=== PATIENT | female | born 1985 | race Caucasian/White ===

== ENCOUNTER 2023-05-27 13:53 | Outpatient (REF) | payer BC, SELFPAY ==
[2023-05-27 16:15] LABS: Source Nasal/Nares
[2023-05-27 17:44] LABS: COVID-19 PCR Negative (Negative)
== END 2023-05-27 13:54 | disposition home or self-care (01) ==
LOC: NCHCN 13:53
PROVIDERS: PCP Family Medicine; Visit Provider Family Medicine
DX: Z01.812 Encounter for preprocedural laboratory examination (principal); Z20.822 Contact with and (suspected) exposure to COVID-19
CPT/HCPCS: 87635

== ENCOUNTER 2023-06-03 15:57 | Outpatient (REF) | payer BC, SELFPAY ==
[2023-06-03 23:14] LABS: Abs Immature Grans 0.03 10^3/uL (0.0-0.06); Absolute Basophil Count 0.04 10^3/uL (0.0-0.2); Absolute Eosinophil Count 0.33 10^3/uL (0.0-0.7); Absolute Lymphocyte Count 2.75 10^3/uL (1.2-3.4); Absolute Monocyte Count 0.62 10^3/uL (0.1-0.8); Absolute Neutrophil Count 6.93 10^3/uL (1.2-6.7); Basophils % 0.4; Eosinophils % 3.1; HCT 41.5 % (36.0-46.0); HGB 13.3 g/dL (11.2-15.7); Immature Grans % 0.3; Lymphocytes % 25.7; MCH 27.3 pg (27.0-33.0); MCV 85 fL (80-95); MPV 9.5 fL (8.0-11.0); Monocytes % 5.8; Neutrophils % 64.7; Platelet Count 445 10^3/uL (130-400); RBC 4.87 10^6/uL (3.93-5.22)
[2023-06-03 23:34] LABS: ALT 33 U/L (14-59); AST 21 U/L (15-37); Albumin 4.2 g/dL (3.4-5.0); Alkaline Phosphatase 98 U/L (46-116); Anion Gap 5.4 mmol/L (3-11); BUN 13 mg/dL (7-18); Bilirubin, Total 0.4 mg/dL (0.2-1.0); CO2 29.6 mmol/L (21.0-32.0); CREATININE 0.7 mg/dL (0.55-1.02); Calcium 9.3 mg/dL (8.5-10.1); Chloride 104 mmol/L (98-107); Estimated GFR 115.59 (mL/min/1.73m2); Glucose 87 mg/dL (74-106); Potassium 4.2 mmol/L (3.5-5.1); Sodium 139 mmol/L (136-145); Total Protein 8.5 g/dL (6.4-8.2)
== END 2023-06-03 15:58 | disposition home or self-care (01) ==
LOC: NCHCN 15:57
PROVIDERS: PCP Family Medicine; Visit Provider Family Medicine
DX: Z01.812 Encounter for preprocedural laboratory examination (principal)
CPT/HCPCS: 80053; 85025

== ENCOUNTER 2024-05-29 15:48 | Outpatient (REF) | payer BC, SELFPAY ==
[2024-05-29 17:23] LABS: Iron 54 ug/dL (50-170); Total Iron Binding Capacity 366 ug/dL (250-450); Transferrin Sat 15 % (15-50)
[2024-05-29 17:52] LABS: Ferritin 42 ng/mL (8-252); Folate 7.6 ng/mL (8.6-20.0); TSH (W/Ref FT4) 1.93 uIU/mL (0.36-3.74); Vitamin B12 273 pg/mL (193-986); Vitamin D 25 Total 26.5 ng/mL (30-100)
== END 2024-05-29 15:49 | disposition home or self-care (01) ==
LOC: NCHCN 15:48
PROVIDERS: PCP Family Medicine; Visit Provider Family Medicine
DX: L65.9 Nonscarring hair loss, unspecified (principal)
CPT/HCPCS: 82306; 82607; 82728; 82746; 83540; 83550; 84443

== ENCOUNTER 2025-05-18 21:10 | Outpatient (REF) | payer OTHER, SELFPAY ==
--- NOTE | 2025-05-18 15:00 | PAPFT_PTH ---
PATIENT: Gauri Gonzalez LOC: [facility]#:[id number] AGE/SX: 39/F ROOM: RE05/18/[address]: Jill Kimbrough : 1985 BED: DIS: 05/18/2025 SPEC #: [id number] RECD: 05/19/25 12:59 STATUS: NESHA REGertrude #: [id number] JENIFER: 05/18/25 15:[address]: Jill Kimbrough DEPT: [facility] Cytology RECD BY: Heather Stevenson Tissues: 1 - CX/ENDOCX FOR PAP SMEARS Procedures: PAP THIN PREP/[facility] Screening HPV DNA PROBE Comments: [id number] (HVP 16 & 18/45)
[2025-05-18 22:05] LABS: HCT 41.9 % (36.0-46.0); HGB 13.9 g/dL (11.2-15.7); MCH 29.8 pg (27.0-33.0); MCHC 33.2 % (32.0-36.0); MCV 90 fL (80-95); MPV 9.5 fL (8.0-11.0); Platelet Count 364 10^3/uL (130-400); RBC 4.67 10^6/uL (3.93-5.22); RDW 13.1 % (11.7-14.6); RDW-SD 42.6 fL; WBC 7.21 10^3/uL (4.4-10.8)
[2025-05-18 22:09] LABS: Iron 59 ug/dL (50-170); Total Iron Binding Capacity 354 ug/dL (250-450); Transferrin Sat 17 % (15-50)
[2025-05-18 22:40] LABS: ALT 30 U/L (14-59); AST 18 U/L (15-37); Albumin 4.5 g/dL (3.4-5.0); Alkaline Phosphatase 81 U/L (46-116); Anion Gap 8.7 mmol/L (3-11); BUN 15 mg/dL (7-18); Bilirubin, Total 0.8 mg/dL (0.2-1.0); CO2 27.3 mmol/L (21.0-32.0); CREATININE 0.7 mg/dL (0.55-1.02); Calcium 8.8 mg/dL (8.5-10.1); Calculated LDL 105 mg/dL (<100); Chloride 104 mmol/L (98-107); Cholesterol 157 mg/dL (<200); Estimated GFR 114.16 (mL/min/1.73m2); Ferritin 65 ng/mL (8-252); Glucose 82 mg/dL (74-106); HDL Cholesterol 41 mg/dL (>or=50); Sodium 140 mmol/L (136-145); Total Protein 7.9 g/dL (6.4-8.2); Triglyceride 59 mg/dL (<150); Vitamin B12 1291 pg/mL (193-986); Vitamin D 25 Total 31 ng/mL (30-100)
[2025-05-19 19:53] LABS: Hepatitis C Ab w Rflx HCV PCR Negative (Negative)
[2025-05-19 19:57] LABS: HIV-1/2 Ag & Ab Screen Negative (Negative)
== END 2025-05-18 21:11 | disposition home or self-care (01) ==
LOC: NCHCN 21:10
PROVIDERS: PCP Family Medicine; Visit Provider Family Medicine
DX: Z01.419 Encounter for gynecological examination (general) (routine) without abnormal findings (principal); Z11.4 Encounter for screening for human immunodeficiency virus [HIV]; Z11.59 Encounter for screening for other viral diseases; E53.8 Deficiency of other specified B group vitamins; E55.9 Vitamin D deficiency, unspecified; L65.9 Nonscarring hair loss, unspecified; Z12.4 Encounter for screening for malignant neoplasm of cervix; E66.9 Obesity, unspecified
CPT/HCPCS: 80053; 80061; 82306; 85027; 86803; 87389; 88142; 82607; 82728; 82746; 83540; 83550; 87624